=== PATIENT | female | born 1970 | race Hispanic/Latino ===

== ENCOUNTER 2023-03-02 06:26 | Day surgery (SDC) | payer BC ==
[2023-02-25 13:42] VITALS: BP 144/77; PULSE 62; RESP 18
[2023-03-02] VITALS (11 sets, daily range): BP systolic 102–139; BP diastolic 71–88; PULSE 64–83; RESP 15–16
[~2023-03-02] VITALS: Ht 157.5 cm; Wt 64.4 kg
[~2023-03-02 06:26] MED LIST: 0.9%NACL 1000ML 1,000 ML IV ONE
[2023-03-02] MEDS ORDERED: PROPOFOL 10 MG/ML 20ML VIAL IV ONE (09:18)
== END 2023-03-02 10:37 | disposition home or self-care (01) ==
LOC: ENDO 06:26 → DAH 06:26 → ENDO 10:37
PROVIDERS: ATTEND Internal Medicine
DX: Z12.11 Encounter for screening for malignant neoplasm of colon (principal); R10.13 Epigastric pain; R63.4 Abnormal weight loss; K62.1 Rectal polyp; B96.81 Helicobacter pylori [H. pylori] as the cause of diseases classified elsewhere; K29.50 Unspecified chronic gastritis without bleeding; K80.50 Calculus of bile duct without cholangitis or cholecystitis without obstruction; K86.89 Other specified diseases of pancreas; Z79.899 Other long term (current) drug therapy; Z90.49 Acquired absence of other specified parts of digestive tract; Z98.890 Other specified postprocedural states; Z68.26 Body mass index [BMI] 26.0-26.9, adult
CPT/HCPCS: 81025; 43239; 45380; J7030 ×2; J2704; A4620; A4215 ×2; A4223; A7002; A4222; A4221; A4663; A4216; A4606; J3490